=== PATIENT | male | born 1980 | race African-American/Black ===

== ENCOUNTER 2025-03-02 16:05 | Emergency (ER) | payer SELFPAY ==
--- NOTE | ~2025-03-02 | XR_ITS ---
XR chest 2V HOSTORY: fever, cough COMPARISON:[ None] FINDINGS: Frontal and lateral views of the chest were obtained. The lungs are clear. The heart size is normal in size. Pulmonary vasculature is unremarkable. Osseous structures are intact. IMPRESSION: No acute lung findings.] [ ] Reviewed, dictated and finalized at location S. [facility]
[2025-03-02 16:13] VITALS: BP 121/75; PULSE 74; RESP 16; TEMP 36.8; O2SAT 99
[2025-03-02 17:06] LABS: Influenza A QL RT-PCR Negative (Negative); Influenza B QL RT-PCR Negative (Negative); RSV RNA, RT-PCR Negative (Negative); SARS-CoV-2 RNA PCR Negative (Negative)
--- NOTE | 2025-03-02 18:31 | ED_ITS ---
HPI - General Adult General Chief complaint: Upper Respiratory Infection Stated complaint: cough, fever Time Seen by Provider: 03/02/25 18:31 Source: patient Mode of arrival: ambulatory Limitations: no limitations History of Present Illness HPI narrative: Patient is a 44 y/o male who presents to the ED with c/o URI sx's. Patient reports having URI sx's since . States he recently travelled from [place] for the holidays. He c/o cough, chest/nasal congestion, headaches, myalgias, subjective fevers. Has been taking mucinex and Tylenol for his sx's. Denies SOB. Related Data Allergies Allergy/AdvReac Type Severity Reaction Status Date / Time No Known Allergies Allergy Verified 03/02/25 16:06 Review of Systems Review of Systems: All systems reviewed & are unremarkable except as noted in HPI. All systems reviewed & are unremarkable except as noted in HPI and below Exam Narrative: GENERAL: Well appearing, thin, non-toxic, in no acute distress. HEAD: Normocephalic, atraumatic. RESPIRATORY: Airway patent, respirations nonlabored. Clear to auscultation bilaterally, no rales, rhonchi, wheezing. CARDIOVASCULAR: Regular rate and rhythm without murmurs, rubs, or gallops. MUSCULOSKELETAL: Moves all extremities. No gross deformities. SKIN: Warm, dry, normal color. NEURO: A&O X3. Speech clear. Cranial nerves II-XII grossly intact. Steady gait. No ataxic movements. PSYCHIATRIC: Appropriate mood and affect. Normal interaction. Course Vital Signs Vital signs: Vital Signs Temperature 98.2 F 03/02/25 16:13 Pulse Rate 74 03/02/25 16:13 Respiratory Rate 16 03/02/25 16:13 Blood Pressure 121/75 03/02/25 16:13 Pulse Oximetry 99 03/02/25 16:13 Oxygen Delivery Room Air 03/02/25 16:13 Temperature 98.2 F 03/02/25 16:13 Pulse Rate 74 03/02/25 16:13 Respiratory Rate 16 03/02/25 16:13 Blood Pressure 121/75 03/02/25 16:13 Pulse Oximetry 99 03/02/25 16:13 Oxygen Delivery Room Air 03/02/25 16:13 [facility] MDM Narrative Medical decision making narrative: Negative for influenza, RSV, COVID. Chest x-ray is clear. Patient informed of test results, advised likelihood of viral URI. Discussed continued management of such. Given prescription for Tessalon Perles. Given return precautions. Discharged in stable condition. Differential Diagnosis Differential Diagnosis: Influenza, RSV, COVID, pneumonia, viral URI Medical Records I have reviewed the following patient records and this information was taken into consideration when formulating the assessment and plan.: previous labs, previous ER visits, previous hospitalizations and previous clinic visits Lab Data MDM Lab Attestation statement: I personally reviewed the patient's lab results. Labs: Lab Results 03/02/25 Range/Units 16:20 Influenza A (RT-PCR) Negative (Negative) Influenza B (RT-PCR) Negative (Negative) RSV (RT-PCR) Negative (Negative) SARS-CoV-2 RNA (RT-PCR) Negative (Negative) Imaging Data Attestation: I personally reviewed and interpreted this imaging study as follows: Radiologist's impression: ITS Impressions Chest X-Ray 03/02/25 18:28 IMPRESSION: No acute lung findings.] [ ] Discharge Plan Discharge Clinical Impression: Upper respiratory infection Qualifiers: URI type: unspecified URI Qualified Code(s): J06.9 - Acute upper respiratory infection, unspecified Patient Disposition: Home Condition: Stable Instructions: Antibiotic Form, Upper Respiratory Infection (ED), Viral Syndrome (ED), Cold Symptoms (ED) Additional Instructions: You tested negative for COVID, influenza, RSV. Your x-ray did not show any evidence of pneumonia. You likely have a viral upper respiratory infection that should resolve on its own. Stay well-hydrated at home. Recommend electrolyte rich fluids, Gatorade, Pedialyte, body armor. Utilize Tessalon Perles as needed for cough. Recommend Tylenol and Ibuprofen for discomfort and/or fevers. Recommend [id number] cough and cold medicines for symptom relief, Delsym, Mucinex, DayQuil, NyQuil, Sudafed, Robitussin, TheraFlu. Follow with primary care doctor upon resolution of symptoms. Return to the ED if you experience chest pain, difficulty breathing, unable to keep down food or drink, severe pain, or any other symptoms of concern. Patient Language: [place] Prescriptions: New benzonatate 200 mg capsule 200 mg PO TID PRN (Reason: cough) Qty: 15 0RF Follow-up/Referrals: PHYSICIAN,JOINT CLEANING MACHINE OPERATOR [Primary Care Provider, Internal Medicine] Time of Disposition: 18:39
== END 2025-03-02 18:46 | disposition home or self-care (01) ==
LOC: ANHED 18:43
PROVIDERS: Emergency Medicine; Emergency Provider Physician Assistant
DX: J06.9 Acute upper respiratory infection, unspecified (principal); Z20.822 Contact with and (suspected) exposure to COVID-19
CPT/HCPCS: 71046; 87637; 99283